=== PATIENT | female | born 1950 | race Caucasian/White ===

== ENCOUNTER 2023-03-13 02:34 | Inpatient (IN) | payer MEDICARE ==
[~2023-03-13] VITALS: Ht 154.9 cm; Wt 71.6 kg
[2023-03-13] VITALS (28 sets, daily range): BP systolic 97–149; BP diastolic 37–114
[2023-03-13] MEDS ORDERED: ALBU90OI INH (02:49)
[2023-03-13] MEDS ORDERED: ALEN70 PO (02:50)
[2023-03-13] MEDS ORDERED: Lipitor80 MG PO (02:51)
[2023-03-13] MEDS ORDERED: ASPI81CH PO (02:51)
[2023-03-13] MEDS ORDERED: CARV3.125 PO (02:52)
[2023-03-13] MEDS ORDERED: JARDIANCE25 MG PO (02:53)
[2023-03-13] MEDS ORDERED: AMARYL4 M1 PO (02:54)
[2023-03-13] MEDS ORDERED: HYDR1TAB94 PO (02:55)
[2023-03-13] MEDS ORDERED: NOVOLOG FL100 UNIT/3 (02:56)
[2023-03-13] MEDS ORDERED: INSUGL100V SC (02:57)
[2023-03-13] MEDS ORDERED: EUTHYROX50 MCG PO (02:58)
[2023-03-13] MEDS ORDERED: LEVSOD25 PO (02:58)
[2023-03-13] MEDS ORDERED: LOSA25 PO (02:59)
[2023-03-13] MEDS ORDERED: NICODERM CQ1 EA11 TOP (03:00)
[2023-03-13] MEDS ORDERED: PANT40 PO (03:01)
[2023-03-13] MEDS ORDERED: NITROLINGUAL12 GM (03:01)
[2023-03-13] MEDS ORDERED: PREG200 PO (03:02)
[2023-03-13 04:36] LABS: BASOPHILS ABSOLUTE AUTO 0.09 K/mm3 (0.00-0.23); BASOPHILS PERCENT AUTO 1 % (0-2); EOSINOPHILS ABSOLUTE AUTO 0.38 K/mm3 (0.00-0.68); EOSINOPHILS PERCENT AUTO 2 % (0-6); Hematocrit 40.4 % (33.0-51.0); Hemoglobin 13.1 g/dL (11.5-16.0); IMMATURE GRAN ABSOLUTE AUTO 0.06 K/mm3 (0.00-0.10); IMMATURE GRAN PERCENT AUTO 0 % (0-1); LYMPHOCYTES ABSOLUTE AUTO 3.95 K/mm3 (0.84-5.20); LYMPHOCYTES PERCENT AUTO 24 % (21-46); MONOCYTES ABSOLUTE AUTO 1.73 K/mm3 (0.16-1.47); MONOCYTES PERCENT AUTO 11 % (4-13); Mean Corpuscular HGB 29.6 pg (26.0-34.0); Mean Corpuscular HGB Conc 32.4 g/dL (31.5-36.5); Mean Corpuscular Volume 91 fL (80-100); Mean Platelet Volume 11.5 fL (9.1-12.4); NEUTROPHILS ABSOLUTE AUTO 10.28 K/mm3 (1.96-9.15); NEUTROPHILS PERCENT AUTO 62 % (41-73); Platelet Count 209 K/mm3 (150-400); RDW Coefficient Variation 13.8 % (11.7-14.2); RDW Standard Deviation 46.6 fL (35.1-46.3); Red Blood Cell Count 4.42 M/mm3 (3.80-5.20); White Blood Cell Count 16.49 K/mm3 (4.00-11.30)
[2023-03-13 05:01] LABS: Albumin, Blood 2.9 g/dL (3.4-5.0); Albumin/Globulin Ratio 0.8 (0.8-1.8); Bilirubin, Total 0.4 mg/dL (0.1-1.0); Bun/Creatinine Ratio 36.3 (12.0-20.0); Calcium, Blood 8.5 mg/dL (8.5-10.1); Creatinine, Blood 0.85 mg/dL (0.40-1.00); Globulin, Blood 3.8 g/dL (2.2-4.0); Potassium, Blood 4.2 mmol/L (3.5-5.5); Thyroid Stimulating Hormone 0.494 uIU/mL (0.360-4.800); Total Protein, Blood 6.7 g/dL (6.4-8.2)
[2023-03-13 10:57] LABS: Source, Urine Foley catheter
[2023-03-13 11:06] LABS: Appearance, Urine Cloudy (Clear); Bilirubin, Urine Neg (Neg); Blood, Urine 2+ (Neg); Color, Urine Yellow (P-Yellow); Glucose Qualitative, Urine 4+ (Neg); Ketones, Urine 1+ (Neg); Leukocyte Esterase, Urine 3+ (Neg); Nitrite, Urine Neg (Neg); Protein, Urine 2+ (Neg); Urobilinogen, Urine NORM (Normal)
[2023-03-13 11:19] LABS: Bacteria Many /hpf; Squamous Epithelial Cells Few /hpf (Few); Yeast/Fungi Urine Mod /hpf
--- NOTE | 2023-03-13 12:27 | NUR ---
REASSESSMENT PT SPENT THE MORNING IN BED NAPPING, BUT GOT UP TO THE CHAIR FOR LUNCH. SHE REMAINS ALERT AND ORIENTED. LUNGS ARE CLEAR, BUT DIM. SR/SB WITH RATE IN THE 50S AND 60S. LEVOPHED REMAINS OFF. EATING WELL. GOOD URINE OUTPUT. PT REQUESTING WILKS OUT AND BP IS DOING WELL, SO WILL REMOVE WILKS THIS AFTERNOON. CONTINUING TO MONITOR.
--- NOTE | 2023-03-13 17:10 | NUR ---
SHIFT SUMMARY PT HAS REMAINED OFF OF THE PRESSORS THIS SHIFT. SHE HAS BEEN UP TO THE CHAIR AND UP TO THE SHOWER. HER LUNGS REMAIN CLEAR, DIM IN THE BASES, RA, SR. WILKS REMOVED PER PROTOCOL AND RIJ REMOVED SINCE PT IS NOT REQUIRING PRESSORS. PT TOLERATED BOTH WELL. TOLERATING DIET. PT'S SON CALLED AND WAS UPDATED. DR. EDMONDS GAVE OK FOR PT TO BE MED, NO TELE. CONTINUE TO MONITOR.
--- NOTE | 2023-03-14 05:20 | NUR ---
END OF SHIFT SUMMARY NO ACUTE EVENTS OVER NIGHT. PT WAS ABLE TO SLEEP ONCE PAIN R/T FALLS AT HOME WAS UNDER CONTROL; PRN NORCO AVAILABLE AND GIVEN. SHE IS A/O X4 AND ABLE TO MAKE HER NEEDS KNOWN. VSS. ONE PERSON ASSIST TO BSC AND RECLINER MOSTLY FOR CORD MANAGEMENT. TOLERATING PO INTAKE WELL. WILL REPORT TO AM RN WHEN AVAILABLE.
--- NOTE | 2023-03-14 07:08 | NUR ---
ASSUMED CARE: PT RESTING IN BED. ON RA, NO TELE DUE TO MEDICAL STATUS. C/O ABDOMINAL PAIN THAT HAS BEEN PRESENT OFF AND ON SINCE ADMISSION. DENIES FURTHER NEEDS OR CONCERNS AT THIS TIME.
[2023-03-14 07:34] VITALS: BP 159/66
--- NOTE | 2023-03-14 08:13 | NUR ---
DR EDMONDS CAME TO ROUND ON PT. RELAYED TO HIM THE ABDOMINAL PAIN PT WAS COMPLAINING OF. FAX SENT TO [facility] FOR MEDICAL RECORDS DUE TO CT SCAN BEING DONE THERE. TO REVIEW ORDERS FOR PAIN MEDICATION AND GI UPSET SINCE PT STATES PAIN GETS WORSE WITH EATING. PT SITTING UP EATING BREAKFAST AT THIS TIME. NO ACUTE NEEDS OR CONCERNS.
[2023-03-14 08:32] LABS: Hematocrit 36.8 % (33.0-51.0); Mean Corpuscular HGB 29.8 pg (26.0-34.0); Mean Corpuscular HGB Conc 32.6 g/dL (31.5-36.5); Mean Corpuscular Volume 91 fL (80-100); Mean Platelet Volume 11.6 fL (9.1-12.4); Platelet Count 162 K/mm3 (150-400); RDW Coefficient Variation 13.6 % (11.7-14.2); RDW Standard Deviation 45.8 fL (35.1-46.3); Red Blood Cell Count 4.03 M/mm3 (3.80-5.20); White Blood Cell Count 8.87 K/mm3 (4.00-11.30)
[2023-03-14] MEDS ORDERED: CELEXA40 M1 PO (08:47)
[2023-03-14] MEDS ORDERED: Clopidogrel Bis75 MG PO (08:47)
[2023-03-14] MEDS ORDERED: Desyrel150 MG PO (08:50)
[2023-03-14 09:05] LABS: Bun/Creatinine Ratio 38.2 (12.0-20.0); Creatinine, Blood 0.68 mg/dL (0.40-1.00); Potassium, Blood 4.1 mmol/L (3.5-5.5)
--- NOTE | 2023-03-14 11:22 | NUR ---
CT AND CULTURE RESULT AVAILABLE FROM FAX YESTERDAY. REVIEWED WITH DR EDMONDS WELL PT'S CONCERN FOR SOME HOME MEDS WE WERE NOT ADMINISTERING SUCH PLAVIX. DR REVIEWING HOME MEDS. STATES HE IS WAITING FOR FURTHER CULTURE RESULTS. AWAITING RETURN FAX FROM [facility]
--- NOTE | 2023-03-14 14:26 | NUR ---
NET WEB APPLICATION DEVELOPER AT BEDSIDE
--- NOTE | 2023-03-14 15:13 | NUR ---
REPORT GIVEN TO JAKE EVANS. PT TRANSFERRED TO ROOM 354 VIA WHEEL CHAIR BY SEAT INSTALLER. NO ACUTE NEEDS OR CONCERNS ON TRANSFER
--- NOTE | 2023-03-14 15:42 | NUR ---
PT TRANSFERRED FROM ICU TO MEDICAL FLOOR AT APPROXIMATELY 1520.
--- NOTE | 2023-03-14 18:35 | NUR ---
PT A&OX4, ANSWERS QUESTIONS APPROPRIATELY. TRANSFERRED TO MEDICAL FLOOR FROM THE ICU AT [facility] 1520. VITAL SIGNS STABLE. CBGS ELEVATED, HUMALOG GIVEN. PT REPORTS MILD PAIN IN LOWER ABDOMEN AND MILD BURNING WITH URINATION. WILL CONTINUE PLAN OF CARE.
[2023-03-14 19:50] VITALS: BP 130/56
--- NOTE | 2023-03-15 04:13 | NUR ---
SHIFT SUMMERY, PT GIVEN PYRIDIUM AND MEDICATION SEEMED TO HELP. PT HAS BEEN SLEEPING WELL. CALL LIGHT IN REACH.
[2023-03-15 05:19] LABS: Hematocrit 37.2 % (33.0-51.0); Hemoglobin 12.3 g/dL (11.5-16.0); Mean Corpuscular HGB 29.8 pg (26.0-34.0); Mean Corpuscular HGB Conc 33.1 g/dL (31.5-36.5); Mean Corpuscular Volume 90 fL (80-100); Mean Platelet Volume 11.2 fL (9.1-12.4); Platelet Count 174 K/mm3 (150-400); RDW Coefficient Variation 13.4 % (11.7-14.2); RDW Standard Deviation 44.1 fL (35.1-46.3); Red Blood Cell Count 4.13 M/mm3 (3.80-5.20); White Blood Cell Count 7.88 K/mm3 (4.00-11.30)
[2023-03-15 05:42] VITALS: BP 130/45
[2023-03-15 05:56] VITALS: BP 140/67
[2023-03-15 06:21] LABS: Bun/Creatinine Ratio 34.9 (12.0-20.0); Calcium, Blood 9.8 mg/dL (8.5-10.1); Creatinine, Blood 0.72 mg/dL (0.40-1.00)
[2023-03-15 08:05] VITALS: BP 137/62
--- NOTE | 2023-03-15 13:19 | NUR ---
ASSUMED CARE OF PATIENT. REPORT RECEIVED FROM JAKE RUIZ RN. PT LYING IN BED, DENIES ANY PAIN OR SOB. PT TELLS ME SHE DIDNT GET ANY SLEEP LAST NIGHT AND WOULD LIKE TO NAP. TELE MONITOR REPORTS PT IS SB WITH CURRENT HR OF 52
--- NOTE | 2023-03-15 13:24 | NUR ---
RELAXATION INTERVENTION STUDENT NURSE ASKED PT IF THEY WOULD ENJOY A LAVENDER ESSENTIAL OIL PATCH FOR RELAXATION. UPON RETRIEVING PATCH FROM PALLIATIVE CARE NURSE. THEY SUGGESTED TO PLACE PATCH IN CARD TO PREVENT SKIN IRRITATION AND OVERWHELMING SCENT. STUDENT ASKED IF PT ALLERGIC TO LAVENDER AND/OR INGREDIENTS IN PATCH, PT DENIED ANY ALLERGIES TO IT.
[2023-03-15 15:20] VITALS: BP 1112/67
--- NOTE | 2023-03-15 18:33 | NUR ---
SHIFT SUMMARY PT A&OX4, CALLS APPROPRIATELY. PT REPORTS LOWER ABD PAIN AND A PAIN OF 2/10 WHEN URINATING, SCHEDULED URINARY ANALGESIC GIVEN AND IS EFFECTIVE. PT REPORTS ANXIETY REGARDING KNOWLEDGE OF LOW B/P, DR NOTIFIED AND TELEMETRY ORDERED. HR MAINTAINS 50S-LOW 60S, DR NOTIFIED. WILL CONTINUE PLAN OF CARE.
[2023-03-16 03:24] VITALS: BP 131/60
--- NOTE | 2023-03-16 05:38 | NUR ---
PATIENT REMAINS ALERT AND ORIENTED, NO COMPLAINTS THROUGHOUT THE NIGHT. PIV SL, TELE REMAINS SB AND PATIENT ASYMTOMATIC, OTHER VSS. CALLS TO MAKE NEEDS KNOWN. WILL CONT TO MONITOR.
[2023-03-16 07:59] VITALS: BP 141/60
--- NOTE | 2023-03-16 17:03 | NUR ---
SUMMARY- PT A/O X4. TOLERATING FOOD AND FLUID. AMBULATING INDEPENDANT IN ROOM. STATES ONE EPISODE OF DIZZINESS THIS AM ABOUT 0700 THAT STARTED SHE WAS WALKING TO THE BATHROOM. ORDER TO DOCUMENT HR DURING ACTIVITY. TELE PRINTED OUT DURING WALKS AND PLACED ON CHART. FIRST WALK DENIED ANY DIZZINESS, AMBULATED ABOUT 150FEET, HR INITIALLY SR 70-S, WENT UP TO 90'S AND BACK DOWN TO 80'S AFTER ABOUT 60 FEET. NO OTHER DIZZINESS TODAY. WILL TAKE ONE MORE WALK THIS [place] AND DOCUMENT IN CHART PRINTOUT. LIKELY BE ABLE TO GO HOME TO [place] TOMORROW CARDIO PENDING
[2023-03-16 19:23] VITALS: BP 131/57
[2023-03-16 21:11] VITALS: BP 129/62
--- NOTE | 2023-03-16 21:28 | NUR ---
FOR THE PATIENTS THIRD WALK FOR THE DAY, PER TELE. HER HEART RATE DID GO HIGH THE 60'S. UPUN ARRIVAL TO ROOM, VSS, HOWEVER PATIENT WAS CLAMMY AND FELT DIZZY. WILL CONTINUE TO MONITOR THROUGHOUT THE NIGHT NIGHT AND USE ALARM FOR 1X ASSIST TO BATHROOM.
[2023-03-17 04:15] VITALS: BP 127/58
--- NOTE | 2023-03-17 06:09 | NUR ---
PATIENT HAS REMAINED ALERT AND ORIENTED, COOPERATIVE WITH CARE. BECAME DIAPHOETIC UPON AMBULATION, HR WENT UP TO THE MID 60'S PER TELE (PLEASE SEE PRIOR NOTE RE AMBULATION). WE DID RECIEVE ONE CALL FROM TELE WHEN PATIENT DROPPED INTO THE LOW 40'S WHIL SLEEPING, AROUSED EASILY AND ASYMPTOMATIC. NO OTHER ISSUES TO REPORT.
--- NOTE | 2023-03-17 08:01 | NUR ---
pt laying in bed with eyes closed, she sleeps deeply, a/ox4, cooperative with care, follows commands well, reports chronic pain to legs and back, lungs are clear in [place], dim in bases, resp even and unlabored, occ nonproductive cough, on r/a, hrr, distant, sb in the 50's, no edema noted, ppp+2, cap refill <3sec, vs stable, afebrile, piv site is clear and patent, to rfa, btx4, abd flat soft nontender, voids without diff, skin has some scratches, otherwise c/d/i, leticia vicente, call light in reach.
[2023-03-17 08:04] VITALS: BP 118/62
[2023-03-17 18:03] VITALS: BP 138/58
--- NOTE | 2023-03-17 18:51 | NUR ---
pt had an uneventful day, no acute changes this shift. plan for discharge tomorrow. call light in reach.
[2023-03-17 19:46] VITALS: BP 112/53
[2023-03-18 04:59] VITALS: BP 142/59
--- NOTE | 2023-03-18 05:23 | NUR ---
SHIFT SUMMARY ADMITTED FOR UTI/SEPSIS. FULL CODE. TELEMETRY: CARISSA @ 52 BPM. ACHS CBG'S. ADA DIET. ON RA. PLAN IS FOR DC HOME W/ZIO PATCH. RECENT HX OF FAINTING, POSSIBLY FROM BRADYCARDIA. HX OF 5 KY'S, 6 STENTS. REPORTED HX OF CRISTIANA, NO USE OF CPAP. 1 ASSIST W/FWW - BRP.
[2023-03-18 07:31] VITALS: BP 129/53
--- NOTE | 2023-03-18 12:57 | NUR ---
DISCHARGE SUMMARY DISCHARGE, FOLLOWUP, AND MEDICATION INSTRUCTIONS GIVEN TO PT. PT VOICED COMPLETE UNDERSTANDING AND HAS NO QUESTIONS AT THIS TIME. IV REMOVED WITH CATHETER TIP INTACT. PT AWAITING ARRIVAL OF RIDE. WILL CONTINUE TO MONITOR. CALL LIGHT WITHIN REACH.
== END 2023-03-18 13:29 | disposition home or self-care (01) | DRG 871 ==
LOC: MEDS 02:34 → ICUW 02:34 → MEDS 03-14 15:20 → ENPENDDIS 03-18 10:38 → MEDS 03-18 13:29
PROVIDERS: Family Medicine; Internal Medicine; ADMIT Internal Medicine
PROC: 3E033XZ Introduction of Vasopressor into Peripheral Vein, Percutaneous Approach (ICD-10-PCS; principal; 2023-03-13)
PROC: 3E03329 Introduction of Other Anti-infective into Peripheral Vein, Percutaneous Approach (ICD-10-PCS; 2023-03-13)
PROC: 0T9B70Z Drainage of Bladder with Drainage Device, Via Natural or Artificial Opening (ICD-10-PCS; 2023-03-13)
DX: A41.01 Sepsis due to Methicillin susceptible Staphylococcus aureus (principal); E43 Unspecified severe protein-calorie malnutrition; R65.21 Severe sepsis with septic shock; N39.0 Urinary tract infection, site not specified; Z68.1 Body mass index [BMI] 19.9 or less, adult; J44.9 Chronic obstructive pulmonary disease, unspecified; I25.10 Atherosclerotic heart disease of native coronary artery without angina pectoris; E11.9 Type 2 diabetes mellitus without complications; I10 Essential (primary) hypertension; E03.9 Hypothyroidism, unspecified; K21.9 Gastro-esophageal reflux disease without esophagitis; G47.30 Sleep apnea, unspecified; R00.1 Bradycardia, unspecified; R74.8 Abnormal levels of other serum enzymes; Z99.89 Dependence on other enabling machines and devices; F17.210 Nicotine dependence, cigarettes, uncomplicated; Z95.5 Presence of coronary angioplasty implant and graft; Z90.49 Acquired absence of other specified parts of digestive tract; Z98.890 Other specified postprocedural states; Z88.8 Allergy status to other drugs, medicaments and biological substances; Z88.0 Allergy status to penicillin; Z79.82 Long term (current) use of aspirin; Z79.891 Long term (current) use of opiate analgesic; Z79.4 Long term (current) use of insulin; Z79.890 Hormone replacement therapy; Z79.899 Other long term (current) drug therapy; W18.12XA Fall from or off toilet with subsequent striking against object, initial encounter; Y92.002 Bathroom of unspecified non-institutional (private) residence as the place of occurrence of the external cause
CPT/HCPCS: 36415; 80048; 80053; 81001; 82947; 83690; 83880; 84443; 84484; 85025; 85027; 87040; 87086; 93005; 93010; 93246; 93306; 94760; 94762; 97110; 97162; 97530; A9270; J0696; J1650; J1815; J3370; J7050; J7060